=== PATIENT | male | born 1970 | race Caucasian/White ===

== ENCOUNTER 2022-03-18 13:00 | Emergency (ER) | payer SELFPAY ==
[2022-03-18] MEDS ORDERED: Lidocaine 1% MPF 2 ML VIAL ONE (14:00)
[2022-03-18] MEDS ORDERED: Boostrix 0.5 ML (Tdap) VIAL ONE (14:00)
[2022-03-18] MEDS ORDERED: Lidocaine 1% PF 5 ML VIAL ONE (14:03)
[2022-03-18] MEDS ORDERED: Morphine 10 MG/ML VIAL ONE (15:41)
== END 2022-03-18 15:25 | disposition home or self-care (01) ==
LOC: ERS 13:00
DX: K04.7 Periapical abscess without sinus (principal); F17.220 Nicotine dependence, chewing tobacco, uncomplicated
CPT/HCPCS: 41800; 90471; 90715; 96372; J2270